=== PATIENT | female | born 1980 | race Caucasian/White ===

== ENCOUNTER 2021-06-17 11:33 | Outpatient (CLI) | payer BC, SELFPAY ==
--- NOTE | ~2021-06-17 | XR_ITS ---
EXAMINATION: XR cervical spine 4-5V EXAM DATE: 06/17/2021 12:13 INDICATION: Cervicalgia. TECHNIQUE: Cervical spine frontal, lateral, lateral swimmers, and open-mouth odontoid projections. There is no prior study for comparison. FINDINGS: There is moderate disc disease at C6-7, mild to moderate C5-6. Mild reversal of normal cer vical lordosis which could be degenerative or spasm. The vertebral bodies are aligned in the AP dimen dannie. There is mild cervical facet and lower cervical uncovertebral joint arthropathy. The odontoid p rocess is intact. The lateral masses of C1 line up with C2. Prevertebral soft tissue and pre-dens sp ramos are within normal limits. Lung apices are clear. IMPRESSION: 1. C6-7 moderate disc disease. 2. Mild arthropathy. Reviewed, dictated and finalized at location A. RIDER
== END 2021-06-17 11:34 | disposition home or self-care (01) ==
PROVIDERS: PCP Physician Assistant; Visit Provider Physician Assistant
DX: R42 Dizziness and giddiness (principal); R41.82 Altered mental status, unspecified; M50.323 Other cervical disc degeneration at C6-C7 level
CPT/HCPCS: 72050

== ENCOUNTER 2021-06-24 06:34 | Outpatient (CLI) | payer BC, SELFPAY ==
--- NOTE | 2021-06-24 | EST_ITS ---
Patient Info Name: Madie Dumont Age: 41 years : 1980 Gender: Female Ht: 62 in Wt: 140 lbs BSA: 1.68 m2 Technical Quality: Good Exam Date: 06/24/2021 10:46 AM Exam Location: [facility] Patient Status: Outpatient Admit Date: 06/24/2021 Staff Ordering Physician: ScottEneida PA-C Rail Specialist: Lexi Sr RDCS Attending Provider: ZainabEneida PA-C Exercise Technologist: Nori Barrios RDCS Exercise Physician: Lobo Jeffery MD Exam Type: CA stress echo Study Info Indications R42 - Dizziness and giddiness R06.00 - Dyspnea, unspecified Treadmill exercise stress echocardiogram is performed. Summary 1. Negative stress echocardiogram for ischemia by wall motion analysis. 2. Non diagnostic ST/T wave changes with exercise. 3. Good exercise capacity for age. 4. NO exercise induced chest pain. Stress Echo Findings Left Ventricle Normal left venticular systolic function with no regional wall motion abnormalities noted at rest. Overall global left ventricular systolic function Improved post stress. No regional wall motion abnormalities noted post stress. Normal augmentation of all wall segments without evidence of ischemia with stress. Left Ventricle Left ventricular chamber size, wall thickness, systolic and diastolic function are normal with no regional wall motion abnormalities with an estimated ejection fraction of 60-65%. Protocol: Brannon Stress ECG Details Stage: REST Duration (min): 10 min : 18 sec Speed (mph): 0.0 Grade (%): 0 HR (bpm): 73 SBP (mmHg): 102 DBP (mmHg): 80 METS: --- Stage: REST Duration (min): 10 min : 54 sec Speed (mph): 0.0 Grade (%): 0 HR (bpm): 83 SBP (mmHg): 102 DBP (mmHg): 80 METS: --- Stage: REST Duration (min): 11 min : 21 sec Speed (mph): 0.0 Grade (%): 0 HR (bpm): 79 SBP (mmHg): 102 DBP (mmHg): 80 METS: --- Stage: REST Duration (min): 21 min : 42 sec Speed (mph): 0.0 Grade (%): 0 HR (bpm): 85 SBP (mmHg): 102 DBP (mmHg): 80 METS: --- Stage: STAGE 1 Duration (min): 1 min : 0 sec Speed (mph): 1.7 Grade (%): 10 HR (bpm): 107 SBP (mmHg): 102 DBP (mmHg): 80 METS: --- Stage: STAGE 1 Duration (min): 2 min : 0 sec Speed (mph): 1.7 Grade (%): 10 HR (bpm): 117 SBP (mmHg): 102 DBP (mmHg): 80 METS: --- Stage: STAGE 1 Duration (min): 3 min : 0 sec Speed (mph): 1.7 Grade (%): 10 HR (bpm): 118 SBP (mmHg): 138 DBP (mmHg): 81 METS: --- Stage: STAGE 2 Duration (min): 1 min : 0 sec Speed (mph): 2.5 Grade (%): 12 HR (bpm): 126 SBP (mmHg): 138 DBP (mmHg): 81 METS: --- Stage: STAGE 2 Duration (min): 2 min : 0 sec Speed (mph): 2.5 Grade (%): 12 HR (bpm): 132 SBP (mmHg): 124 DBP (mmHg): 80 METS: --- Stage: STAGE 2 Duration (min): 3 min : 0 sec Speed (mph): 2.5 Grade (%): 12 HR (bpm): 134 SBP (mmHg): 124 DBP (mmHg): 80
--- NOTE | 2021-06-24 09:42 | WPDNEUROLOGY ---
Neurology EEG Report General Information Date of Study: 06/24/21 TEST eeg DIAGNOSIS The mental status changes CONDITION OF RECORDING awake and drowsy EEG NUMBER [id number] CLINICAL HISTORY patient reported she has headaches and dizziness all the time and will occasionally lose consciousness. EEG DESCRIPTION Basic resting occipital frequency consists of large amount of low voltage to medium voltage 11 to 13 hertz per 2nd alpha admixed with low-voltage 15 to 18 hertz per 2nd beta. During drowsiness low-voltage beta activity seen diffusely admixed with waxing and waning posterior alpha rhythm. Hyperventilation not done. Photic stimulation produced normal drive. IMPRESSION No significant abnormalities noted.
== END 2021-06-24 06:35 | disposition home or self-care (01) ==
LOC: ANHNEURO 06:40
PROVIDERS: PCP Physician Assistant; Visit Provider Physician Assistant
DX: R06.00 Dyspnea, unspecified (principal); R42 Dizziness and giddiness; M54.2 Cervicalgia
CPT/HCPCS: 93351; 95816

== ENCOUNTER 2021-06-30 12:43 | Outpatient (CLI) | payer BC, SELFPAY ==
--- NOTE | ~2021-06-30 | US_ITS ---
EXAMINATION: US carotid duplex BI DATE: 06/30/2021 13:31 INDICATION: Dizziness and giddiness. TECHNIQUE: Grayscale, color Doppler, and pulsed Doppler images of the cervical carotid arteries were obtained. The degree of vessel stenosis is placed in one of the following categories: normal, <50%, 5 0-69%, >=70% but less than near-occlusion, near-occlusion, or total occlusion. Note that percent sten osis relative to normal distal artery lumen diameter is indirectly measured from velocity measurement s as described by Manuel, et al. Radiology 2003; 229:340-346. COMPARISON: None. FINDINGS: RIGHT: The right common carotid artery (CCA) peak systolic velocity (PSV) is 147 cm/s. The right internal ca rotid artery (ICA) PSV is 114 cm/s. The right ICA end-diastolic velocity (EDV) is 18 cm/s. The right ICA/CCA PSV ratio is 0.8. Grayscale and color Doppler images yield an estimate of 0% diameter reducti on from plaque in the ICA. There is antegrade flow in the right vertebral artery. LEFT: The left CCA PSV is 100 cm/s. The left ICA PSV is 100 cm/s. The left ICA EDV is 45 cm/s. The left ICA /CCA PSV ratio is 1.0. Grayscale and color Doppler images yield an estimate of 0% diameter reduction from plaque in the ICA. There is antegrade flow in the left vertebral artery. IMPRESSION: 1. Normal internal carotid arteries. Reviewed, dictated and finalized at location B. UNT SUPPORT ASSOCIATE
== END 2021-06-30 12:44 | disposition home or self-care (01) ==
LOC: ANHIMG 12:47
PROVIDERS: PCP Physician Assistant; Visit Provider Physician Assistant
DX: R42 Dizziness and giddiness (principal); R41.82 Altered mental status, unspecified; M54.2 Cervicalgia
CPT/HCPCS: 93880

== ENCOUNTER → 2021-08-13 10:39 | Outpatient (CLI) | payer BC, SELFPAY ==
--- NOTE | ~2021-08-13 | MR_ITS ---
EXAMINATION: MR cervical spine wo con EXAM DATE: 08/13/2021 11:41 INDICATION: Degeneration of cervical vertebral disc degeneration of cervical vertebral disc TECHNIQUE: Multi-sequential, multiplanar MR images of the cervical spine were obtained without contra st. Axial T2, axial T2 MERGE sequence. Sagittal T1, T2, T2 fat saturation images also obtained. Th ere is no prior study for comparison. FINDINGS: Moderate disc disease at C6-7, mild to moderate at C5-6. The vertebral bodies are aligned in the AP dimension. The spinal cord signal intensity and intrinsic morphology is normal. Cervicomedu llary junction is normal in appearance. There are no suspicious marrow signal abnormalities. Paraspin al soft tissue is unremarkable. Level by level evaluation: C2-C3: Disc does not extend beyond the endplate margin. Uncovertebral joint arthropathy: None. Facet joint arthropathy: Mild bilateral. Neural foraminal stenosis: No stenosis. Central canal stenosis: No stenosis. C3-C4: Disc does not extend beyond the endplate margin. Uncovertebral joint arthropathy: Mild left. Facet joint arthropathy: Mild bilateral. Neural foraminal stenosis: No stenosis. Central canal stenosis: No stenosis. C4-C5: Disc does not extend beyond the endplate margin. Uncovertebral joint arthropathy: Mild bilateral. Facet joint arthropathy: Mild bilateral. Neural foraminal stenosis: No stenosis. Central canal stenosis: No stenosis. C5-C6: There is a mild diffuse disc bulge. Uncovertebral joint arthropathy: Mild to moderate bilateral. Facet joint arthropathy: None. Neural foraminal stenosis: Mild bilateral. Central canal stenosis: Mild. C6-C7: There is a mild diffuse disc bulge. Uncovertebral joint arthropathy: Mild to moderate bilateral. Facet joint arthropathy: None. Neural foraminal stenosis: Mild bilateral. Central canal stenosis: Mild. C7-T1: Disc does not extend beyond the endplate margin. Uncovertebral joint arthropathy: Mild. Facet joint arthropathy: Mild. Neural foraminal stenosis: No stenosis. Central canal stenosis: No stenosis. IMPRESSION: 1. Mild to moderate lower cervical spondylosis. Reviewed, dictated and finalized at location A. OMER CONTACT SALES ASSOCIATE
== END ==
PROVIDERS: PCP Physician Assistant; Visit Provider Physician Assistant
DX: M50.30 Other cervical disc degeneration, unspecified cervical region (principal); M47.892 Other spondylosis, cervical region
CPT/HCPCS: 72141

== ENCOUNTER 2023-04-17 12:39 | Emergency (ER) | payer BC, SELFPAY ==
[2023-04-17 12:49] VITALS: BP 123/98; PULSE 87; RESP 18; TEMP 36.4; O2SAT 100
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
== END 2023-04-17 13:40 | disposition home or self-care (01) ==
PROVIDERS: Emergency Provider Nurse Practitioner; PCP Physician Assistant
DX: S00.11XA Contusion of right eyelid and periocular area, initial encounter (principal); S00.531A Contusion of lip, initial encounter; S13.9XXA Sprain of joints and ligaments of unspecified parts of neck, initial encounter; W19.XXXA Unspecified fall, initial encounter
CPT/HCPCS: 99213; G0463

== ENCOUNTER 2023-04-28 13:43 | Emergency (ER) | payer BC, SELFPAY ==
--- NOTE | ~2023-04-28 | XR_ITS ---
Clinical Indication: Chest pain PA and lateral views of the chest: Comparison: None Findings: The lungs are clear, without evidence of focal consolidation or pleural effusion. Cardiome diastinal silhouette is within normal limits. Bones and soft tissues are unremarkable. Impression: Normal chest. Reviewed, dictated and finalized at location . Impression: Normal chest.
--- NOTE | 2023-04-28 13:59 | ED.GENADULT ---
HPI - General Adult General Chief complaint: Fall Stated complaint: Chest pain Source: patient and RN notes reviewed History of Present Illness HPI narrative: 43 yr old F presents to urgent care with complaints of midsternal chest pain. Pt states she was seen here 11 days ago after she fell and was having chest pain at that time but it wasn't her biggest complaint so she didn't focus on that then. Pt states she has been sore ever since but Monday the pain became worse. Pt states the pain increases with coughing or laughing, getting out of bed, and palpation. Pt also reports increased pain with deep inhalation and can feel the pain in her mid back and right upper back. Denies any SOB, abdominal pain, dysuria, sore throat, ear pain, or vomiting. Pt was found to be febrile in triage. Pt took a muscle relaxer and ibuprofen earlier today. Related Data Home Medications Medication Instructions Recorded Confirmed lurasidone 40 mg tablet 40 mg PO HS 04/17/23 04/28/23 nortriptyline 25 mg capsule 25 mg PO HS 04/17/23 04/28/23 rimegepant 75 mg disintegrating 75 mg PO HS 04/17/23 04/28/23 tablet (Nurtec ODT) Allergies Allergy/AdvReac Type Severity Reaction Status Date / Time No Known Allergies Allergy Unverified 04/28/23 14:05 Review of Systems Review of Systems: Pertinent positives and pertinent negatives per HPI. [facility] Family History Family History (Updated 02/23/15 @ 15:38 by DOCTOR UNKNOWN) Other Cerebrovascular accident Family history of arthritis Family history of hypothyroidism Hypertension Social History Social History Smoking status: Never smoker Alcohol intake: current Comments At the time of my signature, I reviewed and agree with the nursing past medical, surgical, social, and family history. There is no relevant family history pertinent to the patient complaint. Exam Narrative: GENERAL: This is a well-nourished, well-developed patient, in no apparent distress. HEAD: normocephalic, atraumatic. EYES: Sclera clear/white. Vision is grossly intact. EARS: External ears normal, auditory canals clear and without drainage. Hearing grossly intact. NOSE: External nose normal with no obvious nasal discharge, nares without redness, no rhinorrhea. THROAT: Mucous membranes moist, posterior pharynx clear. NECK: Neck supple, non-tender without lymphadenopathy, masses or thyromegaly. CARDIOVASCULAR: Tachycardic. Pt's midsternal chest was tender to palpation. RESPIRATORY: Clear to auscultation. Breath sounds equal bilaterally. No wheezes, rales, or rhonchi. GASTROINTESTINAL: Abdomen soft, non-tender, nondistended. Bowel sounds are active. No hepato-splenomegaly, or palpable masses. No guarding. SKIN: warm, intact with no suspicious lesions or rash, good texture and turgor. NEURO: awake, alert, and oriented to person, place and time. There were no obvious focal neurologic abnormalities. EXTREMITIES: No clubbing, cyanosis, or edema. No joint tenderness, effusion, or edema noted. BACK: Nontender without deformity or crepitus. No flank tenderness. Course Course Level of Care: Express Care Visit Vital Signs Vital signs: Vital Signs Temperature 100.5 F H 04/28/23 14:07 Pulse Rate 125 H 04/28/23 14:07 Respiratory Rate 16 04/28/23 14:07 Blood Pressure 116/92 H 04/28/23 14:07 Pulse Oximetry 100 04/28/23 14:07 Temperature 100.5 F H 04/28/23 14:07 Pulse Rate 125 H 04/28/23 14:07 Respiratory Rate 16 04/28/23 14:07 Blood Pressure 116/92 H 04/28/23 14:07 Pulse Oximetry 100 04/28/23 14:07 reviewed Medical Decision Making MDM Narrative Medical decision making narrative: Pt's CXR was negative for any acute findings. Pt's HR improved after Tylenol was given. Pt does not smoke, does not hormones, has not had any lower leg pain or swelling. Pt's chest pain increases with certain positions and movements. Very likely this chest pain is viral induced costochondri
[2023-04-28 14:07] VITALS: BP 116/92; PULSE 125; RESP 16; TEMP 38.1; O2SAT 100
[2023-04-28] MEDS: ACETAMINOPHEN 500 MG TABLET 1000 MG PO (14:23)
[2023-04-28 14:54] VITALS: PULSE 116; RESP 16; O2SAT 99
--- NOTE | 2023-04-28 15:04 | ECG_ITS ---
Measurements Intervals [place] Rate: 111 P: 57 PA: 119 QRS: 17 QRSD: 75 T: 35 QT: 309 QTc: 421 Interpretive Statements SINUS TACHYCARDIA WITH SHORT PA INTERVAL LEFT ATRIAL ENLARGEMENT RSR' IN V1 OR V2, PROBABLY NORMAL VARIANT LOW QRS VOLTAGE IN PRECORDIAL LEADS NONSPECIFIC T-WAVE ABNORMALITY- ANT/INF LEADS ABNORMAL ECG NO PREVIOUS ECG AVAILABLE FOR COMPARISON Electronically Signed On 04-28-2023 15:41:55 CDT by Karan Lentz D.O.
== END 2023-04-28 15:11 | disposition home or self-care (01) ==
PROVIDERS: Emergency Provider Nurse Practitioner Family; PCP Physician Assistant
DX: B34.9 Viral infection, unspecified (principal); M94.0 Chondrocostal junction syndrome [Tietze]; R94.31 Abnormal electrocardiogram [ECG] [EKG]
CPT/HCPCS: 71046; 93005; 99213; A9270; G0463

== ENCOUNTER → 2023-08-11 14:01 | Outpatient (CLI) | payer BC, SELFPAY ==
--- NOTE | ~2023-08-11 | MM_ITS ---
EXAMINATION: MM screening navi BI w bailee HISTORY: Screening mammogram TECHNIQUE: Craniocaudal and mediolateral oblique 3-D tomosynthesis images were obtained and synthetic 2-D images were generated. CAD analysis was submitted and interpreted. COMPARISON: 07/19/2019 BREAST PARENCHYMAL COMPOSITION: The breasts are heterogeneously dense, which may obscure small masses . FINDINGS: The breast implants have been removed. No suspicious mass, calcification, or architectural distortion are identified in either breast to suggest malignancy. There has been no suspicious interv al change. IMPRESSION: 1. No mammographic evidence of malignancy. 2. Recommend routine screening mammography in one year. BI-RADS Category 1: Negative Reviewed, dictated and finalized at location A. DINGS AND GROUNDS DIRECTOR
== END ==
PROVIDERS: PCP Physician Assistant; Visit Provider Physician Assistant
DX: Z12.31 Encounter for screening mammogram for malignant neoplasm of breast (principal)
CPT/HCPCS: 77063; 77067

== ENCOUNTER 2024-08-13 13:59 | Outpatient (CLI) | payer BC, SELFPAY ==
--- NOTE | ~2024-08-13 | MM_ITS ---
EXAMINATION: MM screening navi BI w bailee HISTORY: Screening TECHNIQUE: Craniocaudal and mediolateral oblique 3-D tomosynthesis images were obtained and synthetic 2-D images were generated. CAD analysis was submitted and interpreted. COMPARISON: Comparison to multiple prior studies sequentially, with oldest reviewed study dated 07/07. BREAST PARENCHYMAL COMPOSITION: Dense: The breasts are heterogeneously dense, which may obscure small masses FINDINGS: There is no evidence of suspicious mass, calcification, or architectural distortion to sugg est malignancy in either breast. There has been no suspicious interval change. IMPRESSION: 1. No mammographic evidence of malignancy. 2. Recommend routine screening mammography in one year. BI-RADS Category 1: Negative Reviewed, dictated and finalized at location B. HBOOK ASSEMBLER
== END 2024-08-13 14:00 | disposition home or self-care (01) ==
LOC: MICIMG 14:00
PROVIDERS: PCP Physician Assistant; Visit Provider Physician Assistant
DX: Z12.31 Encounter for screening mammogram for malignant neoplasm of breast (principal)
CPT/HCPCS: 77063; 77067